=== PATIENT | female | born 1965 | race Caucasian/White ===

== ENCOUNTER 2019-03-21 15:03 | Outpatient (REF) | payer BC, SELFPAY ==
--- NOTE | 2019-03-21 13:45 | PAPFT_PTH ---
PATIENT: Lala Romeo LOC: [facility] U#:[id number] AGE/SX: 53/F ROOM: RE03/21/[address]: Joanna Zamora : 1965 BED: DIS: 03/21/2019 SPEC #: [id number] RECD: 03/22/19 13:05 STATUS: SHAUNA REQ #: [id number] JAYESH: 03/21/19 13:[address]: Joanna Zamora DEPT: [facility]ology RECD BY: Veronica Arias ENTERED: 03/22/19 13:06 SP TYPE: PAPFT OTHR DR: Alaina Velasquez Tissues: 1 - CX/ENDOCX FOR PAP SMEARS Procedures: PAP THIN PREP/UVM Screening HPV DNA PROBE Comments: [id number]
[2019-03-21 19:22] LABS: TSH (W/Ref FT4) 5.58 uIU/mL (0.358-3.74)
[2019-03-21 20:18] LABS: FREE T4 0.74 ng/dL (0.76-1.46)
[2019-03-21 22:09] LABS: Vitamin D 25 Total 44.2 ng/ml (30-100)
[2019-03-25 10:31] LABS: Hepatitis C Ab w Rflx HCV PCR Negative (NEGAT)
[2019-03-25 12:20] LABS: Thyroperoxidase Antibody 398 U/mL (<61)
[2019-03-25 12:26] LABS: Thyroglobulin Antibody 136 U/mL (<61)
== END 2019-03-21 15:23 ==
LOC: NCHCN 15:03
PROVIDERS: PCP Naturopath; Visit Provider Family Medicine
DX: R00.2 Palpitations (principal); E06.3 Autoimmune thyroiditis; E55.9 Vitamin D deficiency, unspecified; Z11.59 Encounter for screening for other viral diseases; Z00.00 Encounter for general adult medical examination without abnormal findings; Z12.4 Encounter for screening for malignant neoplasm of cervix; Z11.51 Encounter for screening for human papillomavirus (HPV)
CPT/HCPCS: 82306; 86803; 88142; 84439; 84443; 86376; 86800; 87624

== ENCOUNTER 2020-05-08 04:42 | Outpatient (CLI) | payer BC, SELFPAY ==
[2020-05-08 17:07] LABS: TSH (W/Ref FT4) 5.34 uIU/mL (0.36-3.74)
== END 2020-05-08 05:02 ==
PROVIDERS: PCP Family Medicine; Visit Provider Family Medicine
DX: E06.3 Autoimmune thyroiditis (principal)
CPT/HCPCS: 36415; 84439; 84443

== ENCOUNTER 2020-09-10 18:24 | Outpatient (REF) | payer BC, SELFPAY ==
[2020-09-14 17:07] LABS: COVID-19 RT-PCR Result NEGATIVE (Negative)
== END 2020-09-10 18:44 ==
LOC: NCHCN 18:24
PROVIDERS: PCP Family Medicine; Visit Provider Nurse Practitioner Family
DX: Z11.59 Encounter for screening for other viral diseases (principal)
CPT/HCPCS: U0003

== ENCOUNTER 2021-01-18 19:11 | Outpatient (REF) | payer BC, SELFPAY ==
[2021-01-20 19:25] LABS: Source: Urethra
== END 2021-01-18 19:12 | disposition home or self-care (01) ==
LOC: NCHCN 19:11
PROVIDERS: PCP Family Medicine; Visit Provider Family Medicine
DX: R10.9 Unspecified abdominal pain (principal); N20.0 Calculus of kidney
CPT/HCPCS: 82365; 87086

== ENCOUNTER 2021-08-06 17:17 | Outpatient (REF) | payer BC, SELFPAY ==
--- NOTE | 2021-08-06 15:35 | PAPFT_PTH ---
PATIENT: Lala Romeo LOC: [facility] U#:[id number] AGE/SX: 55/F ROOM: RE08/06/[address]: Torie Perry : 1965 BED: DIS: 08/06/2021 SPEC #: [id number] RECD: 08/06/21 18:20 STATUS: SHAUNA REMatty #: [id number] JAYESH: 08/06/21 15:[address]: Torie Perry DEPT: [facility] Cytology RECD BY: Veronica Arias Tissues: 1 - CX/ENDOCX FOR PAP SMEARS Procedures: PAP THIN PREP/UVM Screening HPV DNA PROBE Comments: [id number]
== END 2021-08-06 17:18 | disposition home or self-care (01) ==
LOC: LBN 17:17
PROVIDERS: PCP Family Medicine; Visit Provider Family Medicine
DX: Z12.4 Encounter for screening for malignant neoplasm of cervix (principal); Z11.51 Encounter for screening for human papillomavirus (HPV)
CPT/HCPCS: 88142; 87624

== ENCOUNTER 2021-11-30 04:12 | Outpatient (CLI) | payer BC, SELFPAY ==
[2021-11-30 09:06] LABS: Anion Gap 7.6 mmol/L (3-11); BUN 15 mg/dL (7-18); CO2 28.4 mmol/L (21.0-32.0); Calcium 8.9 mg/dL (8.5-10.1); Chloride 103 mmol/L (98-107); Estimated GFR 56.95 (mL/min/1.73m2); Glucose 99 mg/dL (74-106); Potassium 4.3 mmol/L (3.5-5.1); Sodium 139 mmol/L (136-145); TSH (W/Ref FT4) 5.19 uIU/mL (0.36-3.74)
[2021-11-30 10:03] LABS: Calculated LDL 124 mg/dL (<100); Cholesterol 206 mg/dL (<200); HDL Cholesterol 73 mg/dL (40-60); Triglyceride 48 mg/dL (<150)
== END 2021-11-30 04:13 | disposition home or self-care (01) ==
LOC: LBO 04:12
PROVIDERS: PCP Family Medicine; Visit Provider Family Medicine
DX: Z00.00 Encounter for general adult medical examination without abnormal findings (principal); I10 Essential (primary) hypertension; E03.9 Hypothyroidism, unspecified
CPT/HCPCS: 36415; 80048; 80061; 84439; 84443

== ENCOUNTER 2022-02-22 18:22 | Emergency (ER) | payer BC, SELFPAY ==
[2022-02-22] VITALS (20 sets, daily range): BP systolic 127–145; BP diastolic 40–72; PULSE 54–74; RESP 16; TEMP 36–36.7; O2SAT 96–100
--- NOTE | 2022-02-22 18:30 | DI.CT_ITS ---
Exam(s) CT RENAL COLIC WO EXAM: CT RENAL COLIC WO INDICATION: rlq pain. COMPARISON: No exams were available for comparison TECHNIQUE: CT examination was performed without contrast administration. FINDINGS: Images obtained through the lung bases are unremarkable. Spleen is unremarkable in appearance, live r appears normal except for an approximately 2-2.5 cm in diameter low to intermediate attenuation rig ht hepatic lobe lesion, no prior studies available for comparison, this is an indeterminate finding a nd additional evaluation with hepatic protocol MRI is suggested.. Visualized portions of the pancreas are unremarkable. Gallbladder and bile ducts are CT normal. Abdominal aorta is of normal diameter. No significant abdominal wall hernia. No significant abdominal or pelvic adenopathy. Adrenals appear normal bilaterally. The kidneys are normal in size and shape. There are apparent bilateral renal cysts, the largest in t he left kidney measuring about 2.5 cm in greatest diameter. There is no intrarenal calcification on the right or left. There is moderate to severe right hydronephrosis and hydroureter to the level of the distal ureter where there is an obstructing 5 millimeter in diameter stone. Urinary bladder unre markable in appearance. No left ureterolithiasis or left hydronephrosis.. Appendix appears normal. No evidence diverticulitis or bowel obstruction. IMPRESSION: Incidental right hepatic lobe lesion, indeterminate in nature with intermediate attenuation. Additio nal evaluation with hepatic protocol MRI including multiphasic post contrast imaging recommended.. Obstructing 5 millimeter in diameter distal right ureteral calculus with moderate to severe right hyd ronephrosis. Incidental Findings RADIATION DOSE DELIVERED: 619.48mGy.cm DLP 619.48mGy.cm Total DLP !Error CTDIvol RADIATION OPTIMIZATION: All CT scans at this facility use at least one of these dose optimization te chniques: automated exposure control; mA and/or kV adjustment per patient size (includes targeted exa ms where dose is matched to clinical indication); or iterative reconstruction.
--- NOTE | 2022-02-22 18:32 | W.ED.GENAD ---
Discharge Plan Disposition Patient Disposition: HOME Discharge Details Clinical Impression: Renal calculus, right Primary Care Provider: Torie Perry ED Provider: Tamir Garcia Home Meds and New Rx's Prescriptions: No Action cholecalciferol (vitamin D3) 10 mcg/5 mL (400 unit/5 mL) liquid 10 mcg PO DAILY calm 1 ea PO DAILY Label Comments: magnesium powder Rx Instructions: magnesium supplement ascorbic acid (vitamin C) 1,000 mg tablet 1 g PO DAILY zinc 10 mg Tablet PO DAILY Discharge Instructions Instructions: Kidney Stones (ED) Additional Instructions: Keep yourself well-hydrated. Take the zofran for nausea every 6 hours as needed. You may take iburofen 400mg every 6 hours for the pain. Return to the ED iof increase pain or fever. Medical Decision Making Clinical presentation is consistent with recurrent kidney stone. Work-up ordered. Patient will be treated with Toradol IV fluids as well as Zofran. Patient CAT scan has confirmed distal right stone. This measured 25 mm. There is some obstructive uropathy. Reexamination the patient feels a great deal better. She still having some residual discomfort. Furthermore her creatinine today is 1.2 from her baseline of 1. She will be further hydrated and will await UA to make sure that that there is not a UTI HPI General Date/Time Provider Initiated Documentation: 02/22/22 18:31. HPI Narrative: 56-year-old lady presents to the emergency room for evaluation of sudden onset right lower quadrant pain. No radiation. Associated with nausea and vomiting. Patient states she is having difficulty finding comfortable position. No associated with any urinary symptoms. Prior to this she was feeling fine. Moderate to severe pain. No exacerbating factors. No alleviating factors Related Data Home Medications Medication Instructions Recorded Confirmed ascorbic acid (vitamin C) 1,000 mg 1 g PO DAILY 08/06/21 02/22/22 tablet calm 1 ea PO DAILY 08/06/21 08/06/21 cholecalciferol (vitamin D3) 10 10 mcg PO DAILY 08/06/21 02/22/22 mcg/5 mL (400 unit/5 mL) oral liquid zinc 10 mg tablet mg PO DAILY 02/22/22 Allergies Allergy/AdvReac Type Severity Reaction Status Date / Time amoxicillin Allergy Unknown Verified 02/22/22 18:35 Review of Systems Narrative: Constitutional negative for fevers and chills. Positive for malaise. Negative for fatigue HEENT negative Cardiovascular negative Respiratory negative GI see HPI see HPI MSK no myalgias arthralgias skin no rashes Neuro no headache no confusion Psych negative Hematological not on blood thinners PFSH All Active Problems (Updated 02/22/22 @ 21:19 by Tamir Garcia MD) Renal calculus, right (Acute) Elevated BP without diagnosis of hypertension (Acute) Hypothyroid (Chronic) Medical History (Updated 02/22/22 @ 21:19 by Tamir Garcia MD) Abnormal EKG history, uncertain of diagnosis. Cervical dysplasia s/p LEEP approx 1999 H/O Jarrett thyroiditis History of kidney stones calcium on stone analysis Premature ventricular beats Vaginal atrophy Vitamin D deficiency Surgical History (Updated 05/06/20 @ 14:36 by Yaneli Joyce RN) S/P ureteral reimplantation Right side Family History (Updated 08/07/21 @ 11:41 by Alondra Sorto) Mother , 84 LUNG CANCER Cancer LUNG Alcohol abuse Father , 60's Alcohol abuse Depression Hypertension Sister Hypertension Brother , 64 Depression Diabetes Heart disease High cholesterol Substance abuse Aortic dissection Brother Hypertension Maternal Grandfather , 45 RHIANNON No problems noted. Paternal Grandfather , 60 No problems noted. Maternal Grandmother , 93 No problems noted. Paternal Grandmother , 68 No problems noted. Social History (Updated 08/07/21 @ 11:44 by Alondra Sorto) Smoking/Tobacco Use Status: Former Tobacco Use tobacco type: cigarettes Quit Date: 09/25/95 Pack-years: 12 Second Hand Exposure: Yes (as a child) Smoking risk assessment performed?: Yes Alcohol Intake: current Alcohol Intake frequency: a few times a month Alcohol type: beer, wine and hard liquor Drug use: Rarely Substance use type: does not use Details: cannabis edibles Caregiver/Support person: No Household members: spouse Housing: house Number of Children: 3 number of grandchildren: 2 Communication Needs: None Education Level: college Do you need help understanding health information?: Never current occupation: works as an laundry technician in [employer] Pets and animals: Yes Pets and animals: cat(s) Sexually active: No Do you think of yourself as: straight/heterosexual Current gender identity: female What is your relationship status?: How often do you talk on the phone with friends or family?: twice per week Do you belong to any clubs or organized social groups?: yes Panel score (0-1 are the most socially isolated patients): 2 What type of physical activity do you participate in: walking, bicycling, weight lifting and yoga Duration: 15-30 minutes/day Frequency: 5-6 times per week Niki/Baptism: Yazidi Special niki needs: No Seatbelt use: always Helmet use: Yes Helmet use: always Drive intox or ride w/intox tower truck driver: No Do you feel safe at home: Yes Do you feel safe in your relationship?: Yes Female Reproductive History Menstrual Menopause type: natural Exam Narrative Exam Narrative: Awake alert [place] x3 calm, no distress, cooperative PERRLA EOMI MMM anicteric Supple neck Chest is clear to auscultation bilaterally Heart regular rhythm and rate GI soft nondistended mild discomfort right lower quadrant no rebound no CVAT back Normal Skin normal Neuro grossly intact Extremity no edema Psych normal mood
[2022-02-22] MEDS: Normal Saline 1,000 ML 1000 ML IV ×2 (18:45→20:05)
[2022-02-22] MEDS: Ondansetron 4 MG/2 ML VIAL IVP (18:55)
[2022-02-22] MEDS: Ketorolac 15 MG/ML VIAL IVP (18:56)
[2022-02-22 19:05] LABS: Anion Gap 10.8 mmol/L (3-11); BUN 28 mg/dL (7-18); CO2 25.2 mmol/L (21.0-32.0); CREATININE 1.2 mg/dL (0.55-1.02); Calcium 8.8 mg/dL (8.5-10.1); Chloride 100 mmol/L (98-107); Estimated GFR 46.14 (mL/min/1.73m2); Glucose 148 mg/dL (74-106); Potassium 3.7 mmol/L (3.5-5.1); Sodium 136 mmol/L (136-145)
[2022-02-22 19:16] LABS: Abs Immature Grans 0.03 10^3/uL (0.0-0.06); Absolute Basophil Count 0.02 10^3/uL (0.0-0.2); Absolute Eosinophil Count 0.02 10^3/uL (0.0-0.7); Absolute Lymphocyte Count 1.05 10^3/uL (1.2-3.4); Absolute Monocyte Count 0.39 10^3/uL (0.1-0.8); Absolute Neutrophil Count 5.94 10^3/uL (1.2-6.7); Basophils % 0.3; Eosinophils % 0.3; HCT 37.5 % (36.0-46.0); HGB 13.1 g/dL (11.2-15.7); Immature Grans % 0.4; Lymphocytes % 14.1; MCH 31.8 pg (27.0-33.0); MCHC 34.9 % (32.0-36.0); MCV 91 fL (80-95); MPV 10.9 fL (8.0-11.0); Monocytes % 5.2; Neutrophils % 79.7; Platelet Count 224 10^3/uL (130-400); RBC 4.12 10^6/uL (3.93-5.22); RDW 12.1 % (11.7-14.6); RDW-SD 40.4 fL; WBC 7.45 10^3/uL (4.4-10.8)
--- NOTE | 2022-02-22 19:43 | DI.VRAD_ITS ---
PROCEDURE INFORMATION: Exam: CT Abdomen And Pelvis Without Contrast Exam date and time: 02/22/2022 7:13 PM Age: 56 years old Clinical indication: Abdominal pain; Localized; Right lower quadrant (rlq); Patient HX: Rlq pain TECHNIQUE: Imaging protocol: Computed tomography of the abdomen and pelvis without contrast. Radiation optimization: All CT scans at this facility use at least one of these dose optimization techniques: automated exposure control; mA and/or kV adjustment per patient size (includes targeted exams where dose is matched to clinical indication); or iterative reconstruction. COMPARISON: No relevant prior studies available. FINDINGS: Limitations: Paucity of intra-abdominal fat. Lungs: Lung bases clear. Liver: Indeterminate 2.0 cm x 2.0 cm hypoattenuating lesion in the posterior right hepatic segment measuring 34 Hounsfield units density on image 37 of series 2, not well characterized by the current exam. Gallbladder and bile ducts: Normal appearing gallbladder. No calcified gallstones. No biliary dilatation. Pancreas: Grossly unremarkable unenhanced pancreas. Spleen: Grossly unremarkable unenhanced spleen. Adrenal glands: Adrenal glands partially obscured but grossly unremarkable, as seen. Kidneys and ureters: 4 mm x 5 mm distal right ureteral calculus with upstream ureterectasis and moderate-severe hydronephrosis. Regions of cortical thinning noted bilaterally, probably scarring from prior insults. Small indeterminate hypoattenuating renal lesions, incompletely characterized but statistically most likely renal cysts. No left-sided urinary tract stones or hydronephrosis. Stomach and bowel: No oral contrast. Stomach moderately distended with fluid. No small bowel dilatation to suggest obstruction. Normal-appearing colon. No evidence of diverticulitis or colitis. Appendix: Normal appendix. Intraperitoneal space: No gross ascites or free air. Vasculature: Normal caliber abdominal aorta. Lymph nodes: No pathologically enlarged mesenteric, retroperitoneal, or pelvic sidewall lymph nodes. Urinary bladder: Urinary bladder partially collapsed but grossly unremarkable, as seen. Reproductive: Uterus and ovaries largely obscured and not well evaluated but grossly normal in size. Bones/joints: No acute fracture seen among the bones of the abdomen or pelvis. Soft tissues: Tiny fat-containing ventral hernia at the umbilicus, doubtful clinical significance. IMPRESSION: 1. 4 mm x 5 mm obstructing distal right ureteral calculus. 2. Indeterminate 2.0 cm x 2.0 cm hypoattenuating lesion in the posterior right hepatic segment. A hemangioma could have this appearance. Alternative pathology is not excluded. Comparison with prior imaging is recommended. Dictated and Authenticated by: Vicente Brown MD. Ordering:RYDER Garnett MD
[2022-02-22 20:55] LABS: Bilirubin Negative (Negative); Blood Trace-intact (Negative); Clarity Clear (Clear); Glucose Negative (Negative); Ketones 40 mg/dL (Negative); Leukocyte Esterase Negative (Negative); Nitrite Negative (Negative); Specific Gravity 1.025 (1.005-1.025); Urobilinogen 0.2 EU/dL (Up TO 0.2); pH 6.5 (5-8)
[2022-02-22 21:00] LABS: Bacteria Negative HPF (Negative); C & S Indicated? No; Casts Negative LPF (Negative); Crystals Negative HPF (Negative); Epithelial Cells Negative HPF (Negative); Mucus Negative (Negative); Other Cells Negative (Negative); RBC 0-2 HPF (0-2); WBC 0-2 HPF (0-5)
[2022-02-22] MEDS: Ondansetron O.D.T. 4 MG TABEF, 3 TABS/BTL PO (21:35)
== END 2022-02-22 21:44 | disposition home or self-care (01) ==
PROVIDERS: Emergency Provider Emergency Medicine; PCP Family Medicine
DX: N20.0 Calculus of kidney (principal); Z87.442 Personal history of urinary calculi; R10.31 Right lower quadrant pain
CPT/HCPCS: 36415; 80048; 96361; 96374; 96375; 99284; 74176; 81003; 81015; 85025; J1885; J2405

== ENCOUNTER → 2022-03-29 01:56 | Outpatient (CLI) | payer BC, SELFPAY ==
--- NOTE | 2022-03-29 07:30 | DI.RAD_ITS ---
Exam(s) XR ABDOMEN FLAT PLATE EXAM: XR ABDOMEN FLAT PLATE CLINICAL HISTORY: monitor known stones,rt renal calculus,rt ureteral calculus,n20.0,n20.1. TECHNIQUE: 2D digital imaging was performed. COMPARISON: CT CT RENAL COLIC WO from 02/22/2022 FINDINGS: Single AP supine view of the abdomen (KUB) Bowel gas pattern is nonspecific in the supine position. Regional bones appear unremarkable. There is a small 2-3 millimeter calcification in the right-side of the pelvis just below the right SI joint.. The calcification lower down representing intrarenal calcification is no longer seen and is possibly passed. IMPRESSION: DATA REPOSITORY: RADIATION DOSE DELIVERED:
== END ==
PROVIDERS: PCP Family Medicine; Visit Provider Urology
DX: N20.2 Calculus of kidney with calculus of ureter
CPT/HCPCS: 74018

== ENCOUNTER 2022-08-30 03:25 | Outpatient (CLI) | payer BC, SELFPAY ==
[2022-08-30 11:18] LABS: Anion Gap 9.1 mmol/L (3-11); BUN 19 mg/dL (7-18); CO2 27.9 mmol/L (21.0-32.0); CREATININE 1.1 mg/dL (0.55-1.02); Calcium 9.4 mg/dL (8.5-10.1); Chloride 100 mmol/L (98-107); Estimated GFR 58.24 (mL/min/1.73m2); Glucose 104 mg/dL (74-106); Potassium 4.1 mmol/L (3.5-5.1); Sodium 137 mmol/L (136-145)
== END 2022-08-30 03:26 | disposition home or self-care (01) ==
PROVIDERS: PCP Family Medicine; Visit Provider Family Medicine
DX: I10 Essential (primary) hypertension (principal); R03.0 Elevated blood-pressure reading, without diagnosis of hypertension; Z87.442 Personal history of urinary calculi
CPT/HCPCS: 36415; 80048

== ENCOUNTER 2023-04-05 20:05 | Emergency (ER) | payer BC, SELFPAY ==
[2023-04-05 20:11] VITALS: BP 142/74; PULSE 70; RESP 16; TEMP 36.8; O2SAT 99
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
[2023-04-05] MEDS: Lidocaine/Epinephri/Tetracaine Topical Gel 3 ML TP (20:40)
== END 2023-04-05 22:08 | disposition home or self-care (01) ==
LOC: ER 20:57
PROVIDERS: Emergency Provider Emergency Medicine; PCP Family Medicine
DX: S51.812A Laceration without foreign body of left forearm, initial encounter (principal); E03.9 Hypothyroidism, unspecified; W22.8XXA Striking against or struck by other objects, initial encounter; Y93.55 Activity, bike riding; Y92.482 Bike path as the place of occurrence of the external cause; Y99.9 Unspecified external cause status
CPT/HCPCS: 12002; 90471; 99283

== ENCOUNTER 2023-08-29 02:29 | Outpatient (CLI) | payer BC, SELFPAY ==
[2023-08-29 11:55] LABS: TSH (W/Ref FT4) 5.54 uIU/mL (0.36-3.74)
[2023-08-29 12:14] LABS: FREE T4 0.75 ng/dL (0.76-1.46)
== END 2023-08-29 02:30 | disposition home or self-care (01) ==
LOC: LBO 02:29
PROVIDERS: PCP Family Medicine; Visit Provider Family Medicine
DX: E03.9 Hypothyroidism, unspecified (principal)
CPT/HCPCS: 36415; 84439; 84443

== ENCOUNTER 2024-03-29 10:55 | Outpatient (CLI) | payer BC, SELFPAY ==
[2024-03-29 12:58] LABS: Abs Immature Grans 0.01 10^3/uL (0.0-0.06); Absolute Basophil Count 0.03 10^3/uL (0.0-0.2); Absolute Eosinophil Count 0.08 10^3/uL (0.0-0.7); Absolute Lymphocyte Count 1.33 10^3/uL (1.2-3.4); Absolute Monocyte Count 0.35 10^3/uL (0.1-0.8); Absolute Neutrophil Count 2.76 10^3/uL (1.2-6.7); Basophils % 0.7 %; Eosinophils % 1.8 %; HCT 40.4 % (36.0-46.0); HGB 13.6 g/dL (11.2-15.7); Immature Grans % 0.2 %; Lymphocytes % 29.2 %; MCH 31.3 pg (27.0-33.0); MCHC 33.7 % (32.0-36.0); MCV 93 fL (80-95); MPV 10.9 fL (8.0-11.0); Monocytes % 7.7 %; Neutrophils % 60.4 %; Platelet Count 243 10^3/uL (130-400); RBC 4.35 10^6/uL (3.93-5.22); RDW 12.2 % (11.7-14.6); RDW-SD 42.3 fL; WBC 4.56 10^3/uL (4.4-10.8)
[2024-03-29 13:46] LABS: ALT 27 U/L (14-59); AST 27 U/L (15-37); Albumin 4.2 g/dL (3.4-5.0); Alkaline Phosphatase 66 U/L (46-116); Anion Gap 6.8 mmol/L (3-11); BUN 16 mg/dL (7-18); Bilirubin, Total 0.39 mg/dL (0.2-1.0); CO2 30.2 mmol/L (21.0-32.0); CREATININE 1.2 mg/dL (0.55-1.02); Calcium 9.3 mg/dL (8.5-10.1); Chloride 102 mmol/L (98-107); Estimated GFR 51.82 (mL/min/1.73m2); Glucose 103 mg/dL (74-106); Potassium 4.4 mmol/L (3.5-5.1); Sodium 139 mmol/L (136-145); TSH (W/Ref FT4) 4.73 uIU/mL (0.36-3.74); Total Protein 7.9 g/dL (6.4-8.2)
[2024-03-29 14:10] LABS: FREE T4 0.83 ng/dL (0.76-1.46)
== END 2024-03-29 10:56 | disposition home or self-care (01) ==
LOC: LOS 10:56
PROVIDERS: PCP Family Medicine; Visit Provider Family Medicine
DX: Z00.00 Encounter for general adult medical examination without abnormal findings (principal); R59.0 Localized enlarged lymph nodes; E03.9 Hypothyroidism, unspecified
CPT/HCPCS: 36415; 80053; 84439; 84443; 85025

== ENCOUNTER → 2024-04-24 01:13 | Outpatient (CLI) | payer BC, SELFPAY ==
--- NOTE | 2024-04-24 08:00 | DI.CT_ITS ---
Exam(s) CT NECK W EXAM: CT NECK W CLINICAL HISTORY: right anterior adenopathy; chronic, cervical lymphadenopathy. TECHNIQUE: Imaging Protocol: Axial computed tomography images with coronal and sagittal reformatted images were created and reviewed CONTRAST MATERIAL: Intravenous: Omnipaque 350 Contrast volume:100 ml contrast COMPARISON: No exams were available for comparison FINDINGS: Parotids: Normal. Submandibular glands: Normal. Thyroid gland: Normal. Lymph nodes: There are scattered lymph nodes seen along the level one to level three all measuring le ss than 8 mm in short axis diameter which are physiologic in nature. Carotids arteries: No significant stenosis or dissection. Mild calcific plaque at the left common ca rotid bulb. Vertebral arteries: No significant stenosis or dissection. Soft tissues: The floor the mouth is unremarkable. The tonsils and adenoids are unremarkable. The epiglottis and vocal cords are within normal limits. Lungs: Images through both lung apices are unremarkable. Bones: Minimal degenerative changes of the cervical spine. Visualized portions of the brain and orbits: Unremarkable. Sinuses and mastoids: Clear. IMPRESSION: Normal CT scan of the neck. RADIATION DOSE DELIVERED: Total DLP DATA REPOSITORY: All CT scans at this facility are submitted to the National Radiology Data Registry (NRDR) Dose Index Registry (DIR) with the [employer] (ACR). RADIATION OPTIMIZATION: All CT scans at this facility use at least one of these dose optimization te chniques: automated exposure control; mA and/or kV adjustment per patient size (includes targeted exa ms where dose is matched to clinical indication); or iterative reconstruction.
[2024-04-24] MEDS: Omnipaque 350 MG/ML 100 ML BTL IJ (13:32)
[2024-04-24] MEDS: Normal Saline - Diluent 50 ML VIAL IJ (13:33)
[2024-04-24] MEDS: Normal Saline Flush 10 ML SYR IVP (13:34)
== END ==
PROVIDERS: PCP Family Medicine; Visit Provider Family Medicine
DX: R59.0 Localized enlarged lymph nodes (principal); E03.9 Hypothyroidism, unspecified
CPT/HCPCS: 70491; J3490

== ENCOUNTER 2024-09-03 09:59 | Outpatient (CLI) | payer BC, SELFPAY ==
[2024-09-03 18:13] LABS: Parathyroid Hormone,Intact 58.3 pg/mL (19.0-88.0)
== END 2024-09-03 10:00 | disposition home or self-care (01) ==
LOC: LOS 09:59
PROVIDERS: PCP Family Medicine; Referring Provider Family Medicine; Visit Provider Family Medicine
DX: Z87.442 Personal history of urinary calculi (principal); Z12.11 Encounter for screening for malignant neoplasm of colon; R59.0 Localized enlarged lymph nodes
CPT/HCPCS: 36415; 83970

== ENCOUNTER 2024-09-09 19:17 | Outpatient (REF) | payer BC, SELFPAY ==
[2024-09-10 09:13] LABS: Calcium Urine 5.9 mg/dL (See Note); Calcium Urine 24 hr 130 mg/24hr (100-300); Timed Urine Volume 2200 mL
== END 2024-09-09 19:18 | disposition home or self-care (01) ==
LOC: LBN 19:17
PROVIDERS: PCP Family Medicine; Visit Provider Family Medicine
DX: Z87.442 Personal history of urinary calculi (principal)
CPT/HCPCS: 81050; 82340

== ENCOUNTER 2024-09-24 01:29 | Outpatient (CLI) | payer BC, SELFPAY ==
--- NOTE | 2024-09-24 12:50 | DI.MAMMO_ITS ---
Exam(s) MAMMO SCREENING EXAM: MAMMO SCREENING CLINICAL HISTORY: screening,z12.39. TECHNIQUE: Bilateral full field digital CC and MLO mammographic images were obtained with 3D tomosyn thesis and utilizing computer aided detection (CAD). COMPARISON: None. Last mammogram was 2013 FINDINGS: Fibroglandular tissue pattern is dense, this somewhat decreasing the sensitivity of the mammogram fin ding hidden underlying lesions. There are no CAD designations in either breast There are no obvious abnormal focal findings in left breast. In the medial aspect of the right breast there is an asymmetric density-possible nodule measuring 6 x 4 mm located 6 cm in from the nipple, medial of center on the CC view. Additional imaging recommend ed. There are no malignant-appearing microcalcification groups in this region or elsewhere in either [address] There is no significant architectural distortion nor skin thickening-retraction. IMPRESSION: 1.Dense bilateral fibroglandular tissue. No radiographic evidence of malignancy in left breast. 2. Nodular density noted in the medial aspect of the right breast as described above. Spot compress ion CC view and breast ultrasound recommended. BI-RADS Category 0 - Incomplete: Need additional imaging evaluation Breast Density - Category C - Heterogeneously dense Breast density Category C or D implies that the patient has dense breast tissue. Dense breast tissue can make it harder to find cancer on a mammogram. Dense breast tissue is also associated with an incr eased risk of breast cancer. This information about the result of the mammogram report was provided to the patient to raise their awareness. Use this report when you speak with the patient about their risks for breast cancer, which includes their family history. At that time, you may recommend additional screening tests (Ultrasoun d or MRI) as these tests may add significant information. A negative radiographic report should not delay biopsy if a dominant or clinically suspicious mass is present. Up to ten percent of cancers are not identified on mammography. A negative report may reinforce clinical impression. Adenosis and dense breasts may obscure an underlying neoplasm. False positive reports average 6 to 10%. Patient will receive a letter notifying them of these results.
== END 2024-09-24 01:49 ==
LOC: DI 01:29
PROVIDERS: PCP Family Medicine; Visit Provider Family Medicine
DX: Z12.31 Encounter for screening mammogram for malignant neoplasm of breast (principal); R92.333 Mammographic heterogeneous density, bilateral breasts
CPT/HCPCS: 77063; 77067

== ENCOUNTER 2024-10-01 01:26 | Outpatient (CLI) | payer BC, SELFPAY ==
--- NOTE | 2024-10-01 10:45 | DI.MAMMO_ITS ---
Exam(s) MAMMO SCREEN CALL BACK UNI EXAM: MAMMO SCREEN CALL BACK UNI CLINICAL HISTORY: R92.8 Abn Mammo, Nodular density in medial aspect RT breast. TECHNIQUE: Craniocaudal and mediolateral oblique Full Field Digital Mammography views of the right b reast with Computer Aided Diagnosis. COMPARISON: Comparison is made with prior examinations. FINDINGS: Mammography/Tomosynthesis: Masses/Architectural Distortion: The area of concern does not persist on the additional views. No yañez spicious masses are seen. No areas of architectural distortion are present. Microcalcifictions: No suspicious pleomorphic-type are seen. Skin Thickening/Nipple Retraction: None. IMPRESSION: 1. No evidence of malignancy is noted. 2. Unless there is more urgent need, follow-up screening mammography is recommended, as per [employer] guidelines. 3. The findings were discussed with the patient on the date of the examination. BI-RADS Category 1 - Negative Breast Density - Category C - Heterogeneously dense Breast density Category C or D implies that the patient has dense breast tissue. Dense breast tissue can make it harder to find cancer on a mammogram. Dense breast tissue is also associated with an incr eased risk of breast cancer. This information about the result of the mammogram report was provided to the patient to raise their awareness. Use this report when you speak with the patient about their risks for breast cancer, which includes their family history. At that time, you may recommend additional screening tests (Ultrasoun d or MRI) as these tests may add significant information. A negative radiographic report should not delay biopsy if a dominant or clinically suspicious mass is present. Up to ten percent of cancers are not identified on mammography. A negative report may reinforce clinical impression. Adenosis and dense breasts may obscure an underlying neoplasm. False positive reports average 6 to 10%. Patient will receive a letter notifying them of these results.
== END 2024-10-01 01:46 ==
LOC: DI 01:26
PROVIDERS: PCP Family Medicine; Visit Provider Family Medicine
DX: R92.8 Other abnormal and inconclusive findings on diagnostic imaging of breast (principal); R92.333 Mammographic heterogeneous density, bilateral breasts; Z12.31 Encounter for screening mammogram for malignant neoplasm of breast
CPT/HCPCS: 77063; 77067